=== PATIENT | female | born 1995 | race American Indian/Alaskan Native ===

== ENCOUNTER 2016-06-29 22:19 | Emergency (ER) | payer MEDICAID ==
[2016-06-29 23:55] LABS: Basophils % (Auto) 0.6 % (0.0-1.8); Eosinophils % (Auto) 3.1 % (0.0-4.3); Hematocrit 36.4 % (30.3-42.9); Hemoglobin 11.9 gm/dl (10.1-14.3); Mean Corpuscular HGB Conc 33 % (30-34); Mean Corpuscular Hemoglobin 26 pg (28-32); Mean Corpuscular Volume 80 fl (79-97); Platelet Count 213 K/mm3 (140-440); Red Blood Count 4.58 M/mm3 (3.65-5.03); Red Cell Distribution Width 12.8 % (13.2-15.2); White Blood Count 6.6 K/mm3 (4.5-11.0)
[2016-06-30] MEDS ORDERED: TYLENOL PO ONE (07:42)
--- NOTE | 2016-06-30 08:42 | Ultrasound Report ---
FINAL REPORT EXAM: US OB TRANSVAGINAL HISTORY: , vag bleeding, abd pain TECHNIQUE: Early obstetrical ultrasound. Transvaginal imaging. Exam read in conjunction with transabdominal study performed concurrently. PRIORS: None. FINDINGS: There is any regular gestational sac in the uterus. No pole or yolk sac seen. Mean sac diameter roughly corresponds to 7 weeks 0 days. This could represent a blighted ovum. Right ovary measures 3.0 x 1.4 x 2.3 cm. The left ovary measures 3.0 x 2.1 x 2.4 cm. No abnormal adnexal mass seen. There is no free fluid. IMPRESSION: There is a irregular gestational sac in the uterus. No pole yolk sac seen. Gestational sac size roughly corresponds to 7 weeks 0 days. Findings could represent blighted ovum. A viable not seen.
--- NOTE | 2016-06-30 08:42 | Ultrasound Report ---
FINAL REPORT EXAM: US OB \T\lt; = 14 WEEKS FETUS HISTORY: , vag bleeding, abd pain TECHNIQUE: Early obstetrical ultrasound. Transabdominal imaging. Exam read in conjunction with transvaginal study performed concurrently. PRIORS: None. FINDINGS: There is any regular gestational sac in the uterus. No pole or yolk sac seen. Mean sac diameter roughly corresponds to 7 weeks 0 days. This could represent a blighted ovum. Right ovary measures 3.0 x 1.4 x 2.3 cm. The left ovary measures 3.0 x 2.1 x 2.4 cm. No abnormal adnexal mass seen. There is no free fluid. IMPRESSION: There is a irregular gestational sac in the uterus. No pole yolk sac seen. Gestational sac size roughly corresponds to 7 weeks 0 days. Findings could represent blighted ovum. A viable not seen.
[2016-06-30 08:49] VITALS: BP 100/57
[2016-06-30 09:06] LABS: Anion Gap 17 mmol/L; Blood Urea Nitrogen 12 mg/dL (7-17); Carbon Dioxide 22 mmol/L (22-30); Chloride 98.6 mmol/L (98-107); Glucose 87 mg/dL (65-100); Potassium 4.1 mmol/L (3.6-5.0); Sodium 133 mmol/L (137-145)
--- NOTE | 2016-06-30 10:01 | Emergency Department Report ---
HPI - General Chief Complaint: Vaginal Bleeding Time Seen by Provider: 06/30/16 06:51 - HPI HPI: The patient is a 21-year-old female EGA 7 weeks, who presents for evaluation of abdominal pain. The patient reports abdominal pain for the past one day, constant since onset, mild in severity, currently 2/10 in severity, cramping in quality, and associated with vaginal bleeding also for the past one day. The patient denies fever, chills, night sweats, diarrhea, blood in the stool, dark tarry stool, dysuria, hematuria, flank pain, genital discharge, inability to pass flatus. ED Past Medical Hx - Past Medical History Previous Medical History?: Yes Hx Hypertension: Yes (DURING 2015) Hx Congestive Heart Failure: No Hx Diabetes: No Hx Asthma: No Hx COPD: No - Surgical History Past Surgical History?: Yes Additional Surgical History: C section - Social History Smoking Status: Never Smoker Substance Use Type: None - Medications Home Medications: Home Medications Medication Instructions Recorded Confirmed Last Taken Type Cyclobenzaprine HCl [Flexeril 5 MG 5 mg PO TID #20 tab 12/28/15 Unknown Rx TAB] Ibuprofen [Motrin 800 MG tab] 800 mg PO Q8HR PRN #30 tablet 12/28/15 Unknown Rx Doxycycline Hyclate [Doxycycline 100 mg PO Q12HR #20 tab 02/13/16 Unknown Rx Hyclate TAB] Acetaminophen [Tylenol] 650 mg PO Q6HR PRN #30 tablet 06/30/16 Unknown Rx Pnv95/Ferrous Fumarate/FA 1 each PO QDAY #31 tablet 06/30/16 Unknown Rx [ Vitamin Tablet] ED Review of Systems ROS: Stated complaint: VAGINAL BLEEDING Other details as noted in HPI Constitutional: denies: fever ENT: denies: throat or neck pain Respiratory: denies: cough, shortness of breath Cardiovascular: denies: chest pain Endocrine: denies unexplained weight loss or gain Gastrointestinal: reports abdominal pain,denies: nausea Genitourinary: reports VB denies: dysuria Musculoskeletal: denies: leg swelling Skin: denies: rash Neurological: denies: headache Hematological/Lymphatic: denies: easy bleeding or easy bruising Psych: denies sadness or hopelessness Physical Exam - Physical Exam Vital Signs: Vital Signs 06/29/16 06/30/16 06/30/16 23:10 08:48 08:49 Temperature 98.4 F 98.2 F Pulse Rate 80 57 L Respiratory 16 16 16 Rate Blood Pressure 118/72 Blood Pressure 100/57 [Right] O2 Sat by Pulse 100 100 100 Oximetry Physical Exam: General: well-nourished, well-developed, no acute distress Head: Normocephalic, atraumatic Eyes: normal sclera ENT: Mucous membranes are pink and moist Neck: trachea midline, neck supple, No neck stiffness, no cervical adenopathy Respiratory: Breath sounds equal bilaterally, no wheezing, rales, or rhonchi Cardio: S1 and S2 present, no murmurs, rubs, gallops, capillary refill is brisk Abdomen: Normoactive bowel sounds, soft abdomen, suprapubic and bilateral lower quadrant tenderness to palpation present, no rigidity, no guarding or rebound tenderness Chest WALL/Back: No tenderness to palpation of the chest wall, no CVA tenderness with percussion Musc: No pitting edema Skin: No rash Neuro: no facial drooping, normal speech Psych: Normal affect ED Course Vital Signs 06/29/16 06/30/16 06/30/16 23:10 08:48 08:49 Temperature 98.4 F 98.2 F Pulse Rate 80 57 L Respiratory 16 16 16 Rate Blood Pressure 118/72 Blood Pressure 100/57 [Right] O2 Sat by Pulse 100 100 100 Oximetry ED Medical Decision Making - Lab Data Result diagrams: 06/29/16 23:26 06/30/16 08:40 - Medical Decision Making The patient was seen and examined by myself. The patient is placed on a mutuel department manager and continuous pulse ox. On initial evaluation, the patient was found to be in no distress. Evaluation orders are placed. The patient is given a tablet of Tylenol for her pain. Lab results reveal positive beta hCG of 4800, and Rh+ blood type. Otherwise labs were unremarkable. Ultrasound of the pelvis reveals a gestational sac without a yolk sac, and is unable to rule out ectopic . The patient was reevaluated and reported that their symptoms were markedly improved. The patient is stable for discharge with outpatient follow-up. The patient is informed of risks of present soft ectopic and risks of threatened miscarriage. She is informed to follow-up outpatient or return to the ED for a repeat beta hCG in 48-72 hours. The patient is given follow-up and return instructions. The patient expressed understanding and agreed with the plan. The patient is discharged in stable condition. Critical care attestation.: If time is entered above; I have spent that time in minutes in the direct care of this critically ill patient, excluding procedure time. ED Disposition Clinical Impression: Threatened miscarriage, Acute bilateral lower abdominal pain Disposition: DISCHARGED TO HOME OR SELFCARE Is pt being admited?: No Does the pt Need Aspirin: No Condition: Stable Instructions: Threatened Miscarriage (ED) Additional Instructions: Your ultrasound was unable to identify a normal intrauterine , and also was not able to rule out an ectopic . Make sure to follow-up with your MEDICAL AND HEALTH SERVICES MANAGER within the next 48 hours for repeat B-HCG testing and trending. Your beta hCG level should double in 2 days if your is progressing as normal. You could have an ectopic and you must immediately present to an emergency department should you develop worsening of your symptoms or severe pain, vaginal bleeding, lightheadedness, passing out, confusion, or fever. Prescriptions: Acetaminophen [Tylenol] 650 mg PO Q6HR PRN #30 tablet PRN Reason: Pain Pnv95/Ferrous Fumarate/FA [ Vitamin Tablet] 1 each PO QDAY #31 tablet Referrals: OBGYN,[facility] [Other] - 3-5 Days Time of Disposition: 10:01
== END 2016-06-30 10:37 | disposition home or self-care (01) ==
LOC: ED 22:19
DX: O20.0 Threatened abortion (principal); R10.31 Right lower quadrant pain; R10.32 Left lower quadrant pain; Z3A.01 Less than 8 weeks gestation of pregnancy
CPT/HCPCS: 36415; 76801; 76817; 80048; 84702; 85025; 86850; 86900; 86901

== ENCOUNTER 2016-07-01 12:19 | Emergency (ER) | payer MEDICAID ==
[2016-07-01 12:32] VITALS: BP 138/86
[2016-07-01 13:05] LABS: Hemoglobin 12.3 gm/dl (10.1-14.3); Mean Corpuscular HGB Conc 33 % (30-34); Mean Corpuscular Hemoglobin 26 pg (28-32); Mean Corpuscular Volume 79 fl (79-97); Platelet Count 204 K/mm3 (140-440); Red Blood Count 4.67 M/mm3 (3.65-5.03); Red Cell Distribution Width 13.1 % (13.2-15.2); White Blood Count 5.4 K/mm3 (4.5-11.0)
[2016-07-01 13:23] LABS: Anion Gap 18 mmol/L; Blood Urea Nitrogen 10 mg/dL (7-17); Calcium 9.2 mg/dL (8.4-10.2); Carbon Dioxide 20 mmol/L (22-30); Chloride 99.9 mmol/L (98-107); Glucose 84 mg/dL (65-100); Potassium 4.1 mmol/L (3.6-5.0); Sodium 134 mmol/L (137-145)
--- NOTE | 2016-07-01 15:32 | Ultrasound Report ---
FINAL REPORT EXAM: US OB \T\lt; = 14 WEEKS FETUS HISTORY: Heavy vaginal bleed . LMP 05/02/2016 with estimated age 8 weeks 4 days and EDC 02/06/2017. Serum beta HCG quantitation 1861 (previous on 06/30/2016 was 4758) TECHNIQUE: Ultrasound of the pelvis using transabdominal and transvaginal imaging PRIORS: Ultrasound 06/30/2016 FINDINGS: Uterus: Uterus is normal in size and normal and homogeneous in echogenicity without focal fibroid formation. The uterus measures 7.8 x 3.9 x 2.7 cm in size. There is no evidence of intrauterine identified. The gestational sac seen on the previous exam is no longer present. Endometrial stripe: Normal and uniform in thickness measuring 14.0 mm. Ovaries: Both ovaries appear normal in size and echogenicity with normal blood flow bilaterally. The right ovary measures 2.4 x 1.4 x 2.7 cm and the left ovary measures 3.6 x 2.3 x 2.6 cm in size. There is a complex cyst the with internal debris in the left ovary measuring 2.2 cm. Other: There is no evidence for solid adnexal mass or free fluid in the cul-de-sac is seen. IMPRESSION: The previous intrauterine gestational sac is no longer visualized. No evidence for extrauterine . Otherwise, negative exam.
[2016-07-01] MEDS ORDERED: TYLENOL PO ONE (17:25)
--- NOTE | 2016-07-01 17:37 | Emergency Department Report ---
HPI - General Chief Complaint: Vaginal Bleeding Time Seen by Provider: 07/01/16 17:24 - HPI HPI: The patient is a 21-year-old female EGA 7 weeks, who presents for evaluation of abdominal pain. The patient reports abdominal pain for the past 3 days, constant since onset, currently 5/10 in severity, cramping in quality, and associated with vaginal bleeding of same duration. She states that her vaginal bleeding has not been heavy. The patient denies fever, chills, night sweats, diarrhea, blood in the stool, dark tarry stool, dysuria, hematuria, flank pain, genital discharge, inability to pass flatus. ED Past Medical Hx - Past Medical History Hx Hypertension: Yes (DURING 2015) Hx Congestive Heart Failure: No Hx Diabetes: No Hx Asthma: No Hx COPD: No - Surgical History Additional Surgical History: C section - Social History Smoking Status: Never Smoker Substance Use Type: None - Medications Home Medications: Home Medications Medication Instructions Recorded Confirmed Last Taken Type Cyclobenzaprine HCl [Flexeril 5 MG 5 mg PO TID #20 tab 12/28/15 Unknown Rx TAB] Ibuprofen [Motrin 800 MG tab] 800 mg PO Q8HR PRN #30 tablet 12/28/15 Unknown Rx Doxycycline Hyclate [Doxycycline 100 mg PO Q12HR #20 tab 02/13/16 Unknown Rx Hyclate TAB] Acetaminophen [Tylenol] 650 mg PO Q6HR PRN #30 tablet 06/30/16 Unknown Rx Pnv95/Ferrous Fumarate/FA 1 each PO QDAY #31 tablet 06/30/16 Unknown Rx [ Vitamin Tablet] HYDROcodone/APAP 7.5-325 [[place] 1 each PO Q8HR PRN #15 tablet 07/01/16 Unknown Rx 7.5-325 mg TAB] Ondansetron [Zofran TAB] 4 mg PO Q8HR PRN #15 tablet 07/01/16 Unknown Rx ED Review of Systems ROS: Stated complaint: 8 WKS /HEAVY BLEEDING/CLOTS Other details as noted in HPI Constitutional: denies: fever ENT: denies: throat or neck pain Respiratory: denies: cough, shortness of breath Cardiovascular: denies: chest pain Endocrine: denies unexplained weight loss or gain Gastrointestinal: reports abdominal pain, nausea Genitourinary: denies: dysuria Musculoskeletal: denies: leg swelling Skin: denies: rash Neurological: denies: headache Hematological/Lymphatic: denies: easy bleeding or easy bruising Psych: denies sadness or hopelessness Physical Exam - Physical Exam Vital Signs: Vital Signs 07/01/16 12:29 Temperature 99.2 F Pulse Rate 82 Respiratory 18 Rate Blood Pressure 138/86 O2 Sat by Pulse 100 Oximetry Physical Exam: General: well-nourished, well-developed, no acute distress Head: Normocephalic, atraumatic Eyes: normal sclera ENT: Mucous membranes are pink and moist Neck: trachea midline, neck supple, No neck stiffness, no cervical adenopathy Respiratory: Breath sounds equal bilaterally, no wheezing, rales, or rhonchi Cardio: S1 and S2 present, no murmurs, rubs, gallops, capillary refill is brisk Abdomen: Normoactive bowel sounds, soft abdomen, midline and bilateral lower quadrant tenderness to palpation present, no rigidity, no guarding or rebound tenderness Chest WALL/Back: No tenderness to palpation of the chest wall, no CVA tenderness with percussion Musc: No pitting edema Skin: No rash Neuro: no facial drooping, normal speech Psych: Normal affect ED Course Vital Signs 07/01/16 12:29 Temperature 99.2 F Pulse Rate 82 Respiratory 18 Rate Blood Pressure 138/86 O2 Sat by Pulse 100 Oximetry ED Medical Decision Making - Lab Data Result diagrams: 07/01/16 12:45 07/01/16 12:45 - Medical Decision Making The patient was seen and examined by myself. The patient is placed on a youth nutritional monitor and continuous pulse ox. On initial evaluation, the patient was found to be in no distress. Evaluation orders were placed. The patient is given a tablet of Tylenol for her pain. Lab results revealed downtrending serum hCG of 1000, down from 4500, and otherwise labs are unremarkable including normal WBC, hemoglobin, hematocrit, and platelet level. Medical records are reviewed and revealed that the patient is Rh+. Ultrasound of the pelvis is negative for ectopic or gestational sac present on previous ultrasound earlier this week, consistent with miscarriage. US also negative for retention of gestational products. The patient was reevaluated and reported that their symptoms were markedly improved. The patient is stable for discharge with outpatient follow-up. The patient is given follow-up and return instructions. The patient expressed understanding and agreed with the plan. The patient is discharged in stable condition. Critical care attestation.: If time is entered above; I have spent that time in minutes in the direct care of this critically ill patient, excluding procedure time. ED Disposition Clinical Impression: Complete miscarriage, Abdominal pain, acute, bilateral lower quadrant Disposition: DISCHARGED TO HOME OR SELFCARE Is pt being admited?: No Does the pt Need Aspirin: No Condition: Stable Instructions: Spontaneous Miscarriage (ED), Threatened Miscarriage (ED) Prescriptions: HYDROcodone/APAP 7.5-325 [[place] 7.5-325 mg TAB] 1 each PO Q8HR PRN #15 tablet PRN Reason: Pain Ondansetron [Zofran TAB] 4 mg PO Q8HR PRN #15 tablet PRN Reason: Nausea Referrals: PRIMARY CARE, [Primary Care Provider] - 3-5 Days [facility] [Provider Group] - 3-5 Days Time of Disposition: 17:30
== END 2016-07-01 17:56 | disposition home or self-care (01) ==
LOC: ED 12:19
DX: O03.9 Complete or unspecified spontaneous abortion without complication (principal); R10.31 Right lower quadrant pain; R10.32 Left lower quadrant pain
CPT/HCPCS: 36415; 76801; 76817; 80048; 84702; 85027; 86850; 86900; 86901

== ENCOUNTER 2017-07-11 17:43 | Emergency (ER) | payer MEDICAID ==
[2017-07-11 18:10] LABS: Basophils % (Auto) 0.4 % (0.0-1.8); Eosinophils # (Auto) 0.1 K/mm3 (0.0-0.4); Eosinophils % (Auto) 1.5 % (0.0-4.3); Hematocrit 37.3 % (30.3-42.9); Hemoglobin 11.8 gm/dl (10.1-14.3); Lymphocytes % (Auto) 32.9 % (13.4-35.0); Mean Corpuscular HGB Conc 32 % (30-34); Mean Corpuscular Volume 77 fl (79-97); Monocytes # (Auto) 0.8 K/mm3 (0.0-0.8); Monocytes % (Auto) 8.8 % (0.0-7.3); Platelet Count 231 K/mm3 (140-440); Red Blood Count 4.84 M/mm3 (3.65-5.03); Red Cell Distribution Width 13.3 % (13.2-15.2)
[2017-07-11 18:16] LABS: Mean Corpuscular Hemoglobin 24 pg (28-32)
[2017-07-11 18:21] LABS: BUN/Creatinine Ratio 18; Blood Urea Nitrogen 9 mg/dL (7-17); Calcium 9.5 mg/dL (8.4-10.2); Hemolysis Index 1
[2017-07-11 18:22] LABS: Bilirubin,Urine NEG (Negative); Blood,Urine NEG (Negative); Color,Urine Yellow (Yellow); Mucus,Urine 1+ /HPF; Protein,Urine <15 mg/dL mg/dL (Negative)
[2017-07-11] MEDS ORDERED: TYLENOL PO ONE (20:58)
[2017-07-11] MEDS ORDERED: NACL 0.9% 1000 ML 1,000 ML IV ONE (20:58)
[2017-07-11] MEDS ORDERED: ZOFRAN IV ONE (20:59)
--- NOTE | 2017-07-11 21:01 | Emergency Department Report ---
ED General Adult HPI - General Chief complaint: Nausea/Vomiting/Diarrhea Stated complaint: VOMITING BLOOD Time Seen by Provider: 07/11/17 20:53 Source: patient Mode of arrival: Ambulatory Limitations: No Limitations - History of Present Illness Initial comments: Patient is a 22-year-old female presents with nausea and vomiting that occurred today. She states that she has been nauseous and bound for the last 2 days patient is 8 weeks she states that she took Phenergan for nausea and vomiting however it was not helping. Patient denies having any shortness of breath she has abdominal pain that is a 1out of 10 she says this an achy type of pain nothing makes it better or worse. Patient denies having any vaginal bleeding or any leakage of fluids. She states the abdominal pain is just a slight soreness after she vomits and she has no suprapubic pain. Patient denies having any seizure or neck pain, headache or fever - Related Data Previous Rx's Medication Instructions Recorded Last Taken Type Cyclobenzaprine HCl [Flexeril 5 MG 5 mg PO TID #20 tab 12/28/15 Unknown Rx TAB] Ibuprofen [Motrin 800 MG tab] 800 mg PO Q8HR PRN #30 tablet 12/28/15 Unknown Rx Doxycycline Hyclate [Doxycycline 100 mg PO Q12HR #20 tab 02/13/16 Unknown Rx Hyclate TAB] Acetaminophen [Tylenol] 650 mg PO Q6HR PRN #30 tablet 06/30/16 Unknown Rx Pnv No.95/Ferrous Fum/Folic AC 1 each PO QDAY #31 tablet 06/30/16 Unknown Rx [ Vitamin Tablet] HYDROcodone/APAP 7.5-325 [[place] 1 each PO Q8HR PRN #15 tablet 07/01/16 Unknown Rx 7.5-325 mg TAB] Ondansetron [Zofran TAB] 4 mg PO Q8HR PRN #15 tablet 07/01/16 Unknown Rx Allergies Allergy/AdvReac Type Severity Reaction Status Date / Time No Known Allergies Allergy Verified 07/11/17 17:47 ED Review of Systems ROS: Stated complaint: VOMITING BLOOD Other details as noted in HPI Constitutional: denies: chills, fever Eyes: denies: eye pain, eye discharge, vision change ENT: denies: ear pain, throat pain Respiratory: denies: cough, shortness of breath, wheezing Cardiovascular: denies: chest pain, palpitations Endocrine: no symptoms reported Gastrointestinal: nausea, vomiting. denies: abdominal pain, diarrhea Genitourinary: denies: urgency, dysuria, discharge Musculoskeletal: denies: back pain, joint swelling, arthralgia Skin: denies: rash, lesions Neurological: denies: headache, weakness, paresthesias Psychiatric: denies: anxiety, depression Hematological/Lymphatic: denies: easy bleeding, easy bruising ED Past Medical Hx - Past Medical History Previous Medical History?: No Hx Hypertension: Yes (DURING 2016) Hx Congestive Heart Failure: No Hx Diabetes: No Hx Asthma: No Hx COPD: No - Surgical History Additional Surgical History: C section - Social History Smoking Status: Never Smoker Substance Use Type: None - Medications Home Medications: Home Medications Medication Instructions Recorded Confirmed Last Taken Type Cyclobenzaprine HCl [Flexeril 5 MG 5 mg PO TID #20 tab 12/28/15 Unknown Rx TAB] Ibuprofen [Motrin 800 MG tab] 800 mg PO Q8HR PRN #30 tablet 12/28/15 Unknown Rx Doxycycline Hyclate [Doxycycline 100 mg PO Q12HR #20 tab 02/13/16 Unknown Rx Hyclate TAB] Acetaminophen [Tylenol] 650 mg PO Q6HR PRN #30 tablet 06/30/16 Unknown Rx Pnv No.95/Ferrous Fum/Folic AC 1 each PO QDAY #31 tablet 06/30/16 Unknown Rx [ Vitamin Tablet] HYDROcodone/APAP 7.5-325 [[place] 1 each PO Q8HR PRN #15 tablet 07/01/16 Unknown Rx 7.5-325 mg TAB] Ondansetron [Zofran TAB] 4 mg PO Q8HR PRN #15 tablet 07/01/16 Unknown Rx ED Physical Exam - General Limitations: No Limitations General appearance: alert, in no apparent distress - Head Head exam: Present: atraumatic, normocephalic - Eye Eye exam: Present: normal appearance - ENT ENT exam: Present: mucous membranes moist - Neck Neck exam: Present: normal inspection - Respiratory Respiratory exam: Present: normal lung sounds bilaterally. Absent: respiratory distress - Cardiovascular Cardiovascular Exam: Present: regular rate, normal rhythm. Absent: systolic murmur, diastolic murmur, rubs, gallop - GI/Abdominal GI/Abdominal exam: Present: soft, normal bowel sounds - Extremities Exam Extremities exam: Present: normal inspection - Back Exam Back exam: Present: normal inspection - Neurological Exam Neurological exam: Present: alert, oriented X3 - Psychiatric Psychiatric exam: Present: normal affect, normal mood - Skin Skin exam: Present: warm, dry, intact, normal color. Absent: rash ED Course Vital Signs 07/11/17 17:47 Temperature 98 F Pulse Rate 75 Respiratory 18 Rate Blood Pressure 129/69 O2 Sat by Pulse 99 Oximetry ED Medical Decision Making - Lab Data Result diagrams: 07/11/17 17:57 07/11/17 17:57 Lab Results 07/11/17 07/11/17 07/11/17 Range/Units 17:57 17:57 Unknown WBC 9.1 (4.5-11.0) K/mm3 RBC 4.84 (3.65-5.03) M/mm3 Hgb 11.8 (10.1-14.3) gm/dl Hct 37.3 (30.3-42.9) % MCV 77 L (79-97) fl MCH 24 L (28-32) pg MCHC 32 (30-34) % RDW 13.3 (13.2-15.2) % Plt Count 231 (140-440) K/mm3 Lymph % (Auto) 32.9 (13.4-35.0) % [place] % (Auto) 8.8 H (0.0-7.3) % Eos % (Auto) 1.5 (0.0-4.3) % Baso % (Auto) 0.4 (0.0-1.8) % Lymph # 3.0 (1.2-5.4) K/mm3 [place] # 0.8 (0.0-0.8) K/mm3 Eos # 0.1 (0.0-0.4) K/mm3 Baso # 0.0 (0.0-0.1) K/mm3 Seg Neutrophils % 56.4 (40.0-70.0) % Seg Neutrophils # 5.1 (1.8-7.7) K/mm3 Sodium 134 L (137-145) mmol/L Potassium 3.8 (3.6-5.0) mmol/L Chloride 97.9 L (98-107) mmol/L Carbon Dioxide 20 L (22-30) mmol/L Anion Gap 20 mmol/L BUN 9 (7-17) mg/dL Creatinine 0.5 L (0.7-1.2) mg/dL Estimated GFR > 60 ml/min BUN/Creatinine Ratio 18 % Glucose 83 (65-100) mg/dL Calcium 9.5 (8.4-10.2) mg/dL Urine Color Yellow (Yellow) Urine Turbidity Clear (Clear) Urine pH 5.0 (5.0-7.0) Ur Specific [place] 1.029 (1.003-1.030) Urine Protein <15 mg/dl (Negative) mg/dL Urine Glucose (UA) Neg (Negative) mg/dL Urine Ketones Neg (Negative) mg/dL Urine Blood Neg (Negative) Urine Nitrite Neg (Negative) Urine Bilirubin Neg (Negative) Urine Urobilinogen 4.0 (<2.0) mg/dL Ur Leukocyte Esterase Neg (Negative) Urine WBC (Auto) 2.0 (0.0-6.0) /HPF Urine RBC (Auto) 5.0 (0.0-6.0) /HPF U Epithel Cells (Auto) 3.0 (0-13.0) /HPF Urine Mucus 1+ /HPF - EKG Data -: EKG Interpreted by Ar - EKG Data 07/11/17 22:25 EKG shows normal sinus rhythm no ST segment elevation or T-wave inversion normal axis. - Medical Decision Making Chief medical diagnosis: Hyperemesis gravidarum differential diagnosis electrolyte abnormality, morning sickness, anemia I will get CBC, BMP, IV fluids, urinalysis and IV antiemetics. Patient's blood work is unremarkable she is not having abdominal pain I will send patient home for follow-up Discussed plan with the patient patient agrees with plan additional verbal discharge instructions were given Critical care attestation.: If time is entered above; I have spent that time in minutes in the direct care of this critically ill patient, excluding procedure time. ED Disposition Clinical Impression: 8 weeks gestation of Nausea and vomiting Qualifiers: Vomiting type: unspecified Vomiting Intractability: non-intractable Qualified Code(s): R11.2 - Nausea with vomiting, unspecified Disposition: DC-01 TO HOME OR SELFCARE Is pt being admited?: No Does the pt Need Aspirin: No Condition: Stable Instructions: Hyperemesis Gravidarum (ED) Referrals: BERE DAVISON MD [Staff Physician] - 3-5 Days
[2017-07-11] MEDS ORDERED: TYLENOL ONE (23:06)
[2017-07-11] MEDS ORDERED: ZOFRAN ONE (23:06)
[2017-07-12 01:17] VITALS: BP 104/47
== END 2017-07-12 01:31 | disposition home or self-care (01) ==
LOC: ED 17:43
DX: O21.0 Mild hyperemesis gravidarum (principal); Z3A.08 8 weeks gestation of pregnancy
CPT/HCPCS: 36415; 80048; 81001; 85025; 96361; 96374; 99283; J2405; J7030

== ENCOUNTER 2017-10-02 19:04 | Observation (INO) | payer MEDICAID ==
[2017-10-02] MEDS ORDERED: LACTATED RINGERS 500 ML IV ONE (20:10)
[2017-10-02 20:39] VITALS: BP 112/68
[2017-10-02 21:07] LABS: Bilirubin,Urine NEG (Negative); Blood,Urine SM (Negative); Color,Urine Yellow (Yellow); Mucus,Urine 2+ /HPF
[2017-10-02] MEDS ORDERED: TYLENOL PO ONE (22:05)
== END 2017-10-02 22:30 | disposition home or self-care (01) ==
LOC: INTOOBSV 19:04 → LD 19:04
PROVIDERS: ADMIT Obstetrics & Gynecology; ATTEND Obstetrics & Gynecology
DX: O26.892 Other specified pregnancy related conditions, second trimester (principal); R51 Headache; O21.2 Late vomiting of pregnancy; O34.219 Maternal care for unspecified type scar from previous cesarean delivery; Z3A.20 20 weeks gestation of pregnancy
CPT/HCPCS: 81001; G0378; G0379; 96360

== ENCOUNTER 2017-10-28 17:03 | Outpatient (CLI) | payer MEDICAID ==
[2017-10-28 19:10] LABS: Bilirubin,Urine NEG (Negative); Blood,Urine NEG (Negative); Color,Urine Yellow (Yellow); Mucus,Urine FEW /HPF; Protein,Urine <15 mg/dL mg/dL (Negative)
[2017-10-28 19:37] VITALS: BP 111/60
== END 2017-10-28 19:50 | disposition home or self-care (01) ==
LOC: TRG 17:03
PROVIDERS: ATTEND Obstetrics & Gynecology
DX: O47.02 False labor before 37 completed weeks of gestation, second trimester (principal); Z3A.24 24 weeks gestation of pregnancy
CPT/HCPCS: 59025; 81001